=== PATIENT | female | born 1985 | race Hispanic/Latino ===

== ENCOUNTER → 2023-10-24 06:49 | Outpatient (REF) | payer OTHER, SELFPAY ==
[2023-10-24 07:15] LABS: % Basophils 0.5 % (0-2); % Eosinophils 2.5 % (0-6); % Immature Granulocytes 0.2 % (0-0.5); % Lymphocytes 42.7 % (20.5-51.1); % Monocytes 7.9 % (1.7-9.3); % Neutrophils 46.2 % (42.2-75.2); Absolute Eosinophils 0.2 10^3/uL (0-0.7); Absolute Lymphocytes 2.6 10^3/uL (1.2-3.4); Absolute Monocytes 0.5 10^3/uL (0.1-0.6); Absolute Neutrophils 2.8 10^3/uL (1.4-6.5); Hematocrit 35.7 % (37.0-47.0); Hemoglobin 11.8 g/dL (12.0-16.0); Mean Corp Hgb Conc. 33.1 g/dL (33.0-37.0); Mean Corpuscular Hgb 30.1 pg (27.0-31.0); Mean Corpuscular Volume 91.1 fL (81.0-99.0); Nucleated Red Blood Cells % 0 %; Platelet Count 259 10^3/uL (130-400); Red Blood Cell Count 3.92 10^6/uL (4.20-5.40); Red Cell Dist. Width 13.8 % (11.5-14.5); White Blood Cell Count 6.1 10^3/uL (4.8-10.8)
[2023-10-24 08:01] LABS: ALT (SGPT) 16 U/L (0-35); AST (SGOT) 23 U/L (14-36); Albumin 4.3 g/dl (3.5-5.0); Alkaline Phosphatase 78 U/L (38-126); Blood Urea Nitrogen 7 mg/dl (7-17); Carbon Dioxide 25 mmol/L (22-30); Chloride 107 mmol/L (98-107); Glucose 104 mg/dl (70-99); Potassium 4.2 mmol/L (3.5-5.1); Sodium 137 mmol/L (135-145); Total Protein 7.4 g/dl (6.3-8.2); eGFR > 60.00
[2023-10-24 09:29] LABS: Glycohemoglobin (HgbA1c) 5.9 % (4.0-5.6)
== END ==
LOC: CLINIC 06:49
PROVIDERS: ATTENDING PHYSICIAN Nurse Practitioner Acute Care
DX: D64.9 Anemia, unspecified (principal); E55.9 Vitamin D deficiency, unspecified; R73.03 Prediabetes
CPT/HCPCS: 36415; 80053; 82306; 83036; 85025

== ENCOUNTER → 2024-04-15 07:28 | Outpatient (REF) | payer OTHER, SELFPAY ==
[2024-04-15 08:17] LABS: % Basophils 0.5 % (0-2); % Eosinophils 1.8 % (0-6); % Immature Granulocytes 0.2 % (0-0.5); % Lymphocytes 33.8 % (20.5-51.1); % Monocytes 7.6 % (1.7-9.3); % Neutrophils 56.1 % (42.2-75.2); Absolute Eosinophils 0.1 10^3/uL (0-0.7); Absolute Lymphocytes 1.9 10^3/uL (1.2-3.4); Absolute Monocytes 0.4 10^3/uL (0.1-0.6); Absolute Neutrophils 3.2 10^3/uL (1.4-6.5); Hematocrit 34.8 % (37.0-47.0); Hemoglobin 11.9 g/dL (12.0-16.0); Mean Corp Hgb Conc. 34.2 g/dL (33.0-37.0); Mean Corpuscular Hgb 29.7 pg (27.0-31.0); Mean Corpuscular Volume 86.8 fL (81.0-99.0); Mean Platelet Volume 9.2 fL (7.4-10.4); Nucleated Red Blood Cells % 0 %; Platelet Count 309 10^3/uL (130-400); Red Blood Cell Count 4.01 10^6/uL (4.20-5.40); Red Cell Dist. Width 13.8 % (11.5-14.5); White Blood Cell Count 5.7 10^3/uL (4.8-10.8)
[2024-04-15 08:37] LABS: Glycohemoglobin (HgbA1c) 5.8 % (4.0-5.6)
[2024-04-15 09:06] LABS: ALT (SGPT) 21 U/L (0-35); AST (SGOT) 23 U/L (14-36); Albumin 4.5 g/dl (3.5-5.0); Blood Urea Nitrogen 10 mg/dl (7-17); Calcium 9.2 mg/dl (8.4-10.2); Carbon Dioxide 23 mmol/L (22-30); Glucose 104 mg/dl (70-99); Potassium 4.1 mmol/L (3.5-5.1); Total Bilirubin 0.6 mg/dl (0.2-1.3); Total Cholesterol 171 mg/dl (50-199); Total Protein 7.3 g/dl (6.3-8.2); Triglyceride 118 mg/dl (10-149); Very Low Density Lipoprotein 23 mg/dl (0-30); eGFR > 60.00
[2024-04-15 09:15] LABS: Alkaline Phosphatase 84 U/L (38-126); Chloride 108 mmol/L (98-107); HDL Cholesterol 47 mg/dl; LDL Cholesterol, Calculated 101 mg/dl; Sodium 138 mmol/L (135-145)
[2024-04-15 09:54] LABS: Vitamin D, 25-OH*** 30.8 ng/mL (30-80)
[2024-04-15 10:08] LABS: TSH Reflex To Free T4 2.17 uIU/ml (0.47-4.68)
== END ==
LOC: REG 07:28
PROVIDERS: ATTENDING PHYSICIAN Nurse Practitioner Acute Care
DX: E55.9 Vitamin D deficiency, unspecified (principal); R73.03 Prediabetes; D64.9 Anemia, unspecified
CPT/HCPCS: 36415; 80053; 80061; 82306; 83036; 84443; 85025

== ENCOUNTER → 2024-11-07 13:07 | Outpatient (REF) | payer OTHER, SELFPAY | LOC: HWWDC 13:07 | PROVIDERS: ATTENDING PHYSICIAN Nurse Practitioner Adult Health | DX: Z12.31 Encounter for screening mammogram for malignant neoplasm of breast (principal) | CPT/HCPCS: 77063; 77067 ==

== ENCOUNTER 2025-01-02 11:43 | Day surgery (SDC) | payer SELFPAY ==
[2025-01-02] VITALS (12 sets, daily range): BP systolic 98–122; BP diastolic 63–78; BMI 42.9
[2025-01-02 06:35] LABS: HCG, Urine Qualitative Screen Negative
[2025-01-02 06:39] LABS: Urine Albumin Negative (Neg - Trace); Urine Bilirubin Negative (Negative); Urine Character Clear (Clear); Urine Color Yellow; Urine Glucose Negative (Negative); Urine Ketone Negative (Negative); Urine Leukocyte Negative (Negative); Urine Nitrite Negative (Negative); Urine Occult Blood 1+ (Negative); Urine Specific Gravity 1.015 (<1.030); Urine Urobilinogen Negative (Neg - 1+); Urine pH 6.5 (5.0-9.0)
--- NOTE | 2025-01-02 07:09 | ED.GENMED ---
History of Present Illness
General
Chief Complaint: Abdominal Pain
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
Time Seen by Provider: 01/02/25 07:01
History of Present Illness
History of Present Illness:
2 to 3 days of lower abdominal pain. Vague in nature. LMP December 10. No back pain flank pain urinary symptoms nausea vomiting.
Past History
Past History
ED Past Medical History: None
ED Past Surgical History:
Review of Systems
Review of Systems
All Other Systems: Not applicable
Constitutional: Denies fever
Respiratory: Reports no symptoms
: Reports no symptoms
Phy Exam
Physical Exam
Physical Exam:
GENERAL: Alert and oriented in no apparent distress
EYE: Orbits normal.
NECK: Supple
CARDIAC: Regular rate and rhythm without any obvious murmurs.
LUNGS: Clear breath sounds,normal
ABDOMEN: Soft, no distention. Bowel sounds present. Diffuse lower abdominal tenderness nonlocalizing. No rebound or guarding no mass or hernia
NEUROLOGICAL: Alert and oriented , grossly non-focal
SKIN: Warm and dry, no rash or lesion, no discoloration, skin intact.
MUSCULOSKELETAL: No edema,no deformity.Good color
PSYCH: Normal and appropriate interaction.
Course
Orders/Labs/Results
Orders:
Orders
01/02/25 Breakfast
NPO
Allow oral meds: Yes
Allow clear liquids: No
01/02/25 06:11
Test Result ONCE
01/02/25 06:15
HCG, Urine Qualitative Screen Urgent
Date Specimen was Collected: 01/02/25
Time Specimen was Collected: 06:11
01/02/25 06:16
Urinalysis Reflex To Culture Urgent
Date Specimen was Collected: 01/02/25
Time Specimen was Collected: 06:11
Urine Microscopic Reflex Cult Urgent
01/02/25 07:06
CT Abd/Pel (IV only)-DH only Urgent
Comment:
Reason For Exam: Diffuse lower abdominal pain
IV Insert/Care/Rem.- Treatment PRN
0.9% Sodium Chloride 500 ml [Nss] 500 ml IV BOLUS
01/02/25 07:15
Complete Blood Count/With Diff Urgent
Comprehensive Metabolic Panel Urgent
Lipase Urgent
01/02/25 09:37
0.9% Sodium Chloride 1000 ml [Nss] 1,000 ml IV BOLUS
Morphine Sulfate 2 mg IV NOW STA
01/02/25 10:00
Piperacillin/Tazo 3.375 Gram [Zosyn] 3.375 gram in 50 ml IV Q6H
01/02/25 11:00
Bupivacaine 0.25%Pf/Epinephrin [Sensorcaine-Epi 0.25%-0.0005] 30 ml .ROUTE .STK-MED ONE
01/02/25 11:07
Fentanyl Citrate/Pf [Sublimaze] 100 mcg .ROUTE .STK-MED ONE
Fentanyl Citrate/Pf [Sublimaze] 100 mcg .ROUTE .STK-MED ONE
01/02/25 11:08
Midazolam HCl [Versed] 2 mg .ROUTE .STK-MED ONE
01/02/25 11:12
Dexamethasone Sod Phosphate [Decadron] 20 mg .ROUTE .STK-MED ONE
HYDROmorphone [Dilaudid] 0.25 mg IV PACU-Q5MPRN PRN
HYDROmorphone [Dilaudid] 0.5 mg IV PACU-Q5MPRN PRN
Lidocaine HCl/Pf [Xylocaine-Mpf 1% Vial] 50 mg .ROUTE .STK-MED ONE
Meperidine [Demerol] 12.5 mg IV PACU-Q5MPRN PRN
Ondansetron Injectable [Zofran] 4 mg IV PACU-ONCEPRN PRN
Prochlorperazine [Compazine] 5 mg IV PACU-ONCEPRN PRN
Propofol [Diprivan] 20 ml .ROUTE .STK-MED
Rocuronium [place] [Rocuronium] 50 mg .ROUTE .STK-MED ONE
Notify MD As Directed
Notify physician if: for SDS patients with known or suspected sleep obstructive sleep apnea, monitor in the
PACU.
Notify MD for any apneic/desaturation episodes
O2 Therapy [RESP] Urgent
Titrate/Wean O2 to maintain O2 sat greater than (%): 92
Special Instructions: -Provide supplemental oxygen to achieve O2 sat of 92% or greater.
-After 15 min, may wean O2 and discontinue if patient is able to maintain O2 sat of 92%
or greater during recovery period.
If patient is a discharge home, without oxygen therapy, notify anestheiologist if
unable to maintain O2 SAT of 92% or greater on room air for MD clearance.
01/02/25 11:15
Normosol (Mult Electrolytes) [Normosol-R/Plasmalyte-A] 1,000 ml IV PER PROTOCOL
Sequential Compression Device [Pneumatic Compression Sleeves] As Directed
Type: Knee high
01/02/25 11:16
DX Deep Vein Thrombosis Video Routine
Abnormal Lab Results
01/02/25 01/02/25
06:16 07:15
RBC 3.83 L 10^6/uL
(4.20-5.40)
Hgb 11.3 L g/dL
(12.0-16.0)
Hct 33.2 L %
(37.0-47.0)
Absolute Neuts (auto) 6.6 H 10^3/uL
(1.4-6.5)
Absolute Monos (auto) 0.7 H 10^3/uL
(0.1-0.6)
Lymphocytes % 20.1 L %
(20.5-51.1)
Chloride 109 H mmol/L
(98-107)
Creatinine 0.5 L mg/dL
(0.6-1.0)
Glucose 109 H mg/dl
(70-99)
Ur Occult Blood Reflex 1+ A
(Negative)
Urine Bacteria (Reflex) Few A
(Negative)
01/02/25 07:15
01/02/25 07:15
Vital Signs
Initial and Last Documented VS:
Initial Vital Signs
Temp Pulse Resp BP Pulse Ox
99.6 F 84 16 114/78 100
01/02/25 05:58 01/02/25 05:58 01/02/25 05:58 01/02/25 05:58 01/02/25 05:58
Last Documented Vital Signs
Temp Pulse Resp BP Pulse Ox
99.6 F 84 16 114/78 100
01/02/25 05:58 01/02/25 05:58 01/02/25 05:58 01/02/25 05:58 01/02/25 05:58
MDM/Problems Addressed
Differential Diagnosis Includes:
Diffuse lower abdominal pain over 2 to 3 days. Nontoxic in appearance. 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 Workup in progress
*Pulse Oximetry
Patient hypoxic: no
*Critical Care Note
Total Time (30-74mins, 75-104mins- exclusive of procedures): Not Applicable
Update Note
Update Note:
Patient with acute appendicitis. Through shell core and molding supervisor line this was updated to the patient and daughter. Also the lung nodule was updated. Copy of report given to the patient. She is never smoker. However I did recommend for completeness to get
a CT scan in 1 year. She is fully understanding. Surgery notified.
ED Attending Note
-
Portions of this chart may have been created with voice recognition software.� Occasional wrong word or��sound alike� substitutions may have occurred due to the inherent limitations of voice recognition software.
Discharge Plan
Departure
Patient Disposition: Admit
Date of Disposition: 01/02/25
Time of Disposition: 09:38
Presentation/result/management discussed w/ accepting MD/DO: General Surgery
Discharge Problem:
Acute appendicitis, Incidental lung nodule
Prescriptions:
No Action
No Current Medications
0
Referrals:
Brandy Calderon PA-C [Family Provider] -
Interventions
Interventions:
*Risk Screen - Suicide Last Done: 01/02/25 06:06
*General Assessment Last Done: 01/02/25 11:09
*Neglect/Abuse Screening Last Done: 01/02/25 06:06
*ED- Fall Risk Assessment Last Done: 01/02/25 11:10
*ED COVID-19 Vaccine History Last Done: 01/02/25 06:06
*Nursing Disposition Last Done: 01/02/25 11:10
RI-Weogte-Jqugwcqqlu Assessment Last Done: 01/02/25 09:23
Discharge Date and Time
Discharge Date/Time: 01/02/25 11:11
Print Language: VENEZUELAN
[2025-01-02] MEDS: NSS 500 IV (07:21)
[2025-01-02 07:33] LABS: % Basophils 0.3 % (0-2); % Eosinophils 1.2 % (0-6); % Immature Granulocytes 0.2 % (0-0.5); % Lymphocytes 20.1 % (20.5-51.1); % Monocytes 7.9 % (1.7-9.3); % Neutrophils 70.3 % (42.2-75.2); Absolute Eosinophils 0.1 10^3/uL (0-0.7); Absolute Lymphocytes 1.9 10^3/uL (1.2-3.4); Absolute Monocytes 0.7 10^3/uL (0.1-0.6); Absolute Neutrophils 6.6 10^3/uL (1.4-6.5); Hematocrit 33.2 % (37.0-47.0); Hemoglobin 11.3 g/dL (12.0-16.0); Mean Corpuscular Hgb 29.5 pg (27.0-31.0); Mean Corpuscular Volume 86.7 fL (81.0-99.0); Mean Platelet Volume 9.2 fL (7.4-10.4); Nucleated Red Blood Cells % 0 %; Platelet Count 237 10^3/uL (130-400); Red Blood Cell Count 3.83 10^6/uL (4.20-5.40); Red Cell Dist. Width 13.5 % (11.5-14.5); White Blood Cell Count 9.4 10^3/uL (4.8-10.8)
[2025-01-02 07:40] LABS: ALT (SGPT) 20 U/L (0-35); AST (SGOT) 21 U/L (14-36); Albumin 4.1 g/dl (3.5-5.0); Alkaline Phosphatase 81 U/L (38-126); Blood Urea Nitrogen 12 mg/dl (7-17); Calcium 9.1 mg/dl (8.4-10.2); Carbon Dioxide 22 mmol/L (22-30); Chloride 109 mmol/L (98-107); Estimated Creatinine Clearance 121 ml/min; Glucose 109 mg/dl (70-99); Lipase 60 U/L (23-300); Potassium 4.1 mmol/L (3.5-5.1); Sodium 141 mmol/L (135-145); Total Bilirubin 0.8 mg/dl (0.2-1.3); eGFR > 60.00
[2025-01-02 08:09] LABS: Urine Calcium Oxalate Crystals Seen; Urine Squamous Cell >30 /LPF (Few)
[2025-01-02 08:10] LABS: Urine Red Blood Cell 0-2 /HPF (0-2); Urine White Cell 0-2 /HPF (0-5)
[2025-01-02 08:11] LABS: Urine Bacteria Few (Negative)
[2025-01-02] MEDS: MORPHINE SULFATE 2 MG IV (09:43)
[2025-01-02] MEDS: NSS 1000 IV (09:44)
--- NOTE | 2025-01-02 10:05 | CON.GS ---
Addendum entered and electronically signed by Taran Parker MD 01/02/25 10:56:
Patient seen and examined. Agree with assessment plan as documented below. lightning rod installer was used for this encounter.
Patient is a 39 yo F with a PMH of obesity s/p who presents with 2 to 3 days of RLQ abdominal pain. Symptoms began somewhat acutely and progressed since that time. She denies any fevers or chills. She denies any nausea or vomiting. No
significant fluctuations in bowel habits or bloody bowel movements. No urinary symptoms. She does have issues with chronic constipation and takes OTC laxatives. She has not had a prior colonoscopy. No family history notable for IBD or colon
cancer.
Gen: NAD
Abd: soft, tender in RLQ, obese/ND, non-peritoneal, prior lower midline incision well healed
Labs and CT scan were reviewed.
Patient is a 39 yo F p/w acute appendicitis
The natural history and pathophysiology of appendicitis was briefly reviewed. CT scan imaging as a relates to her appendix was reviewed. Options for management including medical management with antibiotics versus surgical management with
appendectomy were considered and discussed. The pros and cons of both approaches was discussed. Specifically, we discussed failure of medical management and future episodes of appendicitis versus surgical risks. Plan for appendectomy.
Plan for laparoscopic appendectomy. The procedure itself, as well as the risks, benefits, and alternatives was discussed. Specifically, we discussed the risks of bleeding, infection, injury to surrounding structures (bowel, bladder), staple line
leak, need for open procedure. Typical postprocedural coverage including pain management and activity restrictions were discussed. Of note, patient will need a work note going forward. All questions answered. Consent signed.
-- Laparoscopic appendectomy
-- NPO, IVF
-- Abx: Zosyn
-- Likely admit overnight for pain control, TBD
Original Note:
Consultation
-
Date/Time Consultation Performed: 01/02/2025 09:50am
Performing Provider: Dr. Taran Parker
Reason for Consultation: Ab pain, appendicitis
Medical History
-
Chief Complaint: ab pain
History of Present Illness:
39-year-old female with no significant past medical history presents to the ED with abdominal pain. She had generalized abdominal pain for the last 2 to 3 days that later localized to the right lower quadrant. She has had decreased appetite,
however denies any nausea, vomiting, diarrhea. She does occasionally get constipated however takes an at home to help her with that. She denies any fevers, chills.
In the ED AFVSS, labs stable, given a 1.5 L NSS bolus, 2mg morphine and started on zosyn.
Past Medical History
Past Medical History: None
Past Surgical History: Other ( x 1)
Social History
Tobacco: Non-Smoker
Alcohol: None
Drug: None
Living: With Family
Employment: Employed
Family History
Family History: Reviewed & Noncontributory
Allergies / Home Medications
Allergy/AdvReac Type Severity Reaction Status Date / Time
No Known Allergies Allergy Unverified 01/02/25 06:06
�Medication �Instructions �Recorded �Confirmed �Type
No Meds [No Current Medications] 01/02/25 01/02/25 History
Review of Systems
-
History Source: Patient
All other systems: Negative unless noted
Abdomen/GI: Abdominal Pain
A 10 point review of systems was completed, and was negative except as per HPI.
Physical Exam
Vital Signs
Temp Pulse Resp BP Pulse Ox
99.6 F 84 16 114/78 100
01/02/25 05:58 01/02/25 05:58 01/02/25 05:58 01/02/25 05:58 01/02/25 05:58
01/01/25 01/02/25 01/03/25
06:59 06:59 06:59
Actual Weight 93 kg
Body Mass Index (BMI) 42.9
Lab Results
01/02/25 07:15
01/02/25 07:15
WBC 9.4 10^3/uL (4.8-10.8) 01/02/25 07:15
Hgb 11.3 g/dL (12.0-16.0) L 01/02/25 07:15
Hct 33.2 % (37.0-47.0) L 01/02/25 07:15
Plt Count 237 10^3/uL (130-400) 01/02/25 07:15
Abs Immat Gran (auto) 0.0 10^3/uL (0-0.05) 01/02/25 07:15
Neutrophils % 70.3 % (42.2-75.2) 01/02/25 07:15
Physical Exam
General: No Apparent Distress
Respiratory: Non Labored Respirations
Cardiac: Regular Rhythm
GI: Tender (RLQ guarding, tenderness ), Distended and Incisions (Consistent with prior )
Rectal: Deferred by Provider
Musculoskeletal: No Edema
Neuro: AO x 3
Psych: Calm
Assessment / Plan
-
39-year-old female with no significant past medical history presents to the ED with acute appendicitis.
AFVSS, labs stable
Plan:
--NPO
--IVF
--Zosyn
--To OR today
--Pain management
Daughter's name is Madelaine who acts as her primary leather currier.
[2025-01-02] MEDS: ZOSYN 50 IV ×3 (10:17→21:28)
--- NOTE | 2025-01-02 12:54 | W.IMMPOSTOP ---
Surgical Immed Post Op Note
-
Primary Surgeon: Elena
Assisting Surgeon: None
Pre-op Diagnosis: Acute appendicitis
Post-op Diagnosis: Acute appendicitis
Procedure Performed: Laparoscopic appendectomy
Anesthesia Type: General
Specimen / Cultures:
1. Appendix
Estimated Blood Loss: 3 cc
Complications: None
Operative Findings:
1. Acutely inflamed and dilated appendix, no evidence of perforation or spillage, adherent to bladder
2. Blunt mobilization off bladder
3. Mesentery taken with [employer], Base with cuff of cecum with mercedes load stapler
4. Reactive fluid removed with Ray-jordy
[2025-01-02] MEDS: DILAUDID 0.5 MG IV ×2 (13:54→17:08)
[2025-01-02] MEDS: NORMOSOL-R/PLASMALYTE-A 1000 IV (16:43)
--- NOTE | 2025-01-02 19:33 | PTCARENOTE ---
Pt arrived from PACU at aprox 1600. Vitals stable. Pt with 4 lap sites to abdomen which are glued and open to air. Admission done via language line.
Pt able to walk to bathroom with assistance and was able to urinate. Given IV dilaudid for pain afterwards. Pt with daughter in room and other family members. Pt able to eat dinner. Instructed via language line to use call sargent for any help to
get OOB.
[2025-01-02] MEDS: TYLENOL 650 MG PO (19:42)
[2025-01-02] MEDS: TYLENOL PO (23:19)
[2025-01-03] MEDS: TYLENOL PO ×2 (03:06→03:10)
[2025-01-03] MEDS: ZOSYN 50 IV ×2 (03:06→09:27)
[2025-01-03 03:39] VITALS: BP 104/60
[2025-01-03 07:30] VITALS: BP 108/65
--- NOTE | 2025-01-03 08:31 | W.PN.GS2 ---
Addendum entered and electronically signed by Renny Dunbar MD 01/03/25 08:39:
Patient seen and examined with surgical WIRE TURNING MACHINE OPERATOR.
Daughter at bedside.
Postoperative pain minimal.
AFVSS
ABD: Soft, nondistended, minimal incisional tenderness.
A/P: POD 1 status post lap appendectomy
DC home
Original Note:
Today's Communication / Plan
-
Dispo planning
Assessment / Plan
-
39 yo female presenting with acute appendicitis now POD #1 lap appi
AFVSS
Following expected post operative course
--Regular diet as tolerated
--OOB/Ambulate
--Analgesics prn
--Discharge to home
Subjective Data
-
Date of Service: January 03, 2025
Patient seen and examined at bedside with Dr. Dunbar. C/O mild pain, much better than previous. Denies n/v. Tolerating diet.
Objective Data
-
Intake and Output
01/02/25 01/03/25 01/04/25
06:59 06:59 06:59
Intake Total 1490 / 1490
Balance 1490 / 1490
Intake:
Oral fluids 640 / 640
IV fluids (Total) 800 / 800
Normosol 500 / 500
IV piggybacks 50 / 50
Other:
Number of approximated MODERATE 2
amounts of urine
Vital Signs
Temp Pulse Resp BP Pulse Ox
98.2 F 78 14 108/65 97
01/03/25 07:30 01/03/25 07:30 01/03/25 07:30 01/03/25 07:30 01/03/25 07:30
Lab Results
01/02/25 07:15
01/02/25 07:15
Calcium 9.1 mg/dl (8.4-10.2) 01/02/25 07:15
Total Bilirubin 0.8 mg/dl (0.2-1.3) 01/02/25 07:15
AST 21 U/L (14-36) 01/02/25 07:15
ALT 20 U/L (0-35) 01/02/25 07:15
Alkaline Phosphatase 81 U/L (38-126) 01/02/25 07:15
Total Protein 7.0 g/dl (6.3-8.2) 01/02/25 07:15
Albumin 4.1 g/dl (3.5-5.0) 01/02/25 07:15
Physical Exam
-
NAD
ABD soft, minimal RLQ and incisional tenderness, nd
Incisions well approximated with intact glue, no erythema
--- NOTE | 2025-01-03 08:34 | W.DS.TRANS ---
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
-
Discharge Instructions:
Discharge Diagnosis/Procedures Acute appendicitis status post laparoscopic
appendectomy
Diet As tolerated,Regular
Activity No strenuous activity
Additional Activity Do not lift over 15lbs for 2-3 weeks
Driving Restrictions No driving for 24 hours
Bathing Restrictions OK to Shower
Wound Care Allow the glue to flake off your incisions on
its own over the next 2-3 weeks. Avoid scrubbing
or picking the glue off. Do not soak in tubs or
pools for 2 weeks.
Instructions:
Stand-Alone Forms:
Changes to Home Medications: No
Discharge Medications:
DC Medications w/original date entered in walkby
acetaminophen 325 mg tablet 650 mg (2 x 325 mg) PO Q4HPRN PRN mild pain #1 tab 01/02/25
ibuprofen 200 mg tablet 400 - 600 mg (2 - 3 x 200 mg) PO Q6HPRN PRN moderate pain #1 tab 01/02/25
oxycodone 5 mg tablet 5 mg PO Q4HPRN PRN breakthrough/severe pain #10 tabs 01/02/25
Home Medication Changes
Pending Results: No
[2025-01-03] MEDS: TYLENOL 650 MG PO (09:26)
--- NOTE | 2025-01-03 10:48 | CM ---
Met with pt and daughters at bedside. IA completed with pt/daughter
Lives in an apartment - 3STE/FF set-up
Independent at baseline. 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
DME - none
HH - no past hx
Has ride at d/c
PCP - [facility]
Pharm - [facility]
Plan - anticipate home no needs; for d/c today
[2025-01-03 11:20] VITALS: BP 117/70
== END 2025-01-03 12:05 | disposition home or self-care (01) ==
LOC: PACU 11:43
PROVIDERS: ATTENDING PHYSICIAN Surgery; EMERGENCY PHYSICIAN Emergency Medicine; FAMILY PHYSICIAN Physician Assistant Medical
DX: K35.80 Unspecified acute appendicitis (principal)
CPT/HCPCS: 44970; 88304; 74177; 80053; 81003; 81015; 81025; 83690; 85025; 96361; 96365; 96375; 99285; C1776; Q9967

== ENCOUNTER → 2025-04-24 08:08 | Outpatient (REF) | payer OTHER, SELFPAY ==
[2025-04-24 09:28] LABS: Hematocrit 35.7 % (37.0-47.0); Hemoglobin 11.6 g/dL (12.0-16.0); Mean Corp Hgb Conc. 32.5 g/dL (33.0-37.0); Mean Corpuscular Volume 88.8 fL (81.0-99.0); Platelet Count 354 10^3/uL (130-400); Red Cell Dist. Width 14.0 % (11.5-14.5)
[2025-04-24 09:44] LABS: ALT (SGPT) 20 U/L (0-35); AST (SGOT) 20 U/L (14-36); Albumin 4.5 g/dl (3.5-5.0); Alkaline Phosphatase 86 U/L (38-126); Blood Urea Nitrogen 8 mg/dl (7-17); Calcium 9.1 mg/dl (8.4-10.2); Carbon Dioxide 27 mmol/L (22-30); Chloride 106 mmol/L (98-107); Glucose 110 mg/dl (70-99); Potassium 4.8 mmol/L (3.5-5.1); Sodium 141 mmol/L (135-145); Total Protein 7.7 g/dl (6.3-8.2); eGFR > 60.00
[2025-04-24 09:56] LABS: Glycohemoglobin (HgbA1c) 5.6 % (4.0-5.6)
[2025-04-24 10:03] LABS: Vitamin D, 25-OH*** 31.7 ng/mL (30-80)
== END ==
LOC: CLINIC 08:08
PROVIDERS: ATTENDING PHYSICIAN Nurse Practitioner Adult Health
DX: E55.9 Vitamin D deficiency, unspecified (principal); R73.03 Prediabetes; D64.9 Anemia, unspecified
CPT/HCPCS: 36415; 80053; 82306; 83036; 85027

== ENCOUNTER → 2025-08-18 16:46 | Outpatient (REF) | payer OTHER, SELFPAY ==
[2025-08-21 22:45] LABS: HPV, High Risk Detected; HPV, High Risk Source Cervix
== END ==
LOC: CLINIC 16:46
PROVIDERS: ATTENDING PHYSICIAN Nurse Practitioner Adult Health
DX: Z12.4 Encounter for screening for malignant neoplasm of cervix (principal)
CPT/HCPCS: 87624; G0123